=== PATIENT | male | born 1965 | race Caucasian/White ===

== ENCOUNTER 2023-08-31 12:18 | Outpatient (OUT) | payer BC, SELFPAY ==
--- NOTE | 2023-08-31 12:22 | MR_ITS ---
The [address] [address] Patient Name: JONATAN AGUILAR MRN: [facility]:[id number] date: 1965 Sex: M Assigned Patient Location: MRI Current Patient Location: MRI Accession/Order Number: [id number] Exam Date: 08/31/2023 12:37 Report Date: 08/31/2023 14:53 At the request of: ALEXA GE Procedure: MR head/brain wo con EXAM: MR head/brain wo con HISTORY: Ataxia R27.0 hand tremors. COMPARISON: None. Technique: Sagittal T1-weighted and axial T2-weighted, turboFLAIR and diffusion-weighted with ADC map images of the brain were obtained without intravenous contrast. Findings: These images reveal no intracranial mass lesion, mass effect, midline shift or abnormal extraaxial fluid collection. The ventricles and sulci are normal for age. No abnormality of reduced diffusion. Normal intravascular flow voids. There is mild generalized cerebral atrophy. No significant high signal intensity lesions in the white matter. Minimal mucosal thickening in the left maxillary sinus. The mastoid air cells appear clear. MR/MR head/brain wo con Impression: There is mild cerebral atrophy. Otherwise no acute intracranial pathology or mass. No evidence for significant white matter disease.. Electronically authenticated by: GARRY TEMPLE Date: 08/31/2023 14:53
== END 2023-08-31 12:19 | disposition home or self-care (01) ==
LOC: MRI 12:18
PROVIDERS: PCP Family Medicine; Visit Provider Psychiatry & Neurology Neurology
DX: R27.0 Ataxia, unspecified (principal)
CPT/HCPCS: 70551